=== PATIENT | female | born 1995 | race Caucasian/White ===

== ENCOUNTER 2023-02-21 12:40 | Emergency (ER) | payer OTHER ==
[2023-02-21 13:40] LABS: Bilirubin Neg (Negative); Blood, Urine 10 (Negative); Clarity Clear (Clear); Glucose, Urine (Dipstick) Normal (Negative); Ketone, Urine Negative (Negative); Leukocyte 25 (Negative); Nitrite Negative (Negative); Protein, Urine (Dipstick) Negative (Neg-Trace); Specific Gravity, Urine 1.015 (1.005-1.030)
[2023-02-21 13:45] LABS: Pregnancy Test - Urine (BHCG) POSITIVE (Negative); Pregu Control Background? CLEAR/WHITE (CLR/WHITE); Pregu Control Bar Appear? YES (CONTROL BAR); Specific Gravity 1.015 (1.002-1.036)
[2023-02-21 14:14] LABS: #Basophils 0.1 10x3/uL (0.0-0.2); #Eosinphils 0.3 10x3/uL (0.0-0.5); #Monocytes 0.9 10x3/uL (0.0-1.1); #Neutrophils 5.4 10x3/uL (1.5-8.4); %Basophils 0.9 % (0.0-2.0); %Eosinophils 3.6 % (0.0-6.0); %Lymphocytes 20.6 % (18.0-47.0); %Monocytes 10.6 % (0.0-10.0); %Neutrophils 63.9 % (40.0-75.0); Hematocrit 33.9 % (34.9-44.5); Hemoglobin 10.5 g/dL (12.0-15.5); Mean Corpuscular Hemoglobin 22.6 pg (27.0-33.0); Mean Corpuscular Volume 73.1 fl (81.6-98.3); Mean Platelet Volume 10.4 fl (7.4-10.4); Platelet Count 263 10x3/uL (150-450); RBC Distribution Width 18.1 % (11.5-14.5); Red Blood Cell (RBC) Count 4.64 10x6/uL (3.90-5.03); White Blood Cell (WBC) Count 8.4 10x3/uL (3.5-10.5)
[2023-02-21 14:38] LABS: ALT (SGPT) 21 U/L (8-55); AST (SGOT) 20 U/L (5-34); Albumin 4.3 g/dL (3.5-5.0); Alkaline Phosphatase 64 U/L (40-110); Anion Gap 13 mmol/L (10-20); BUN (Urea Nitrogen) 10 mg/dL (7.0-18.7); Bilirubin, Total 0.3 mg/dL (0.2-1.2); Calc. Creatinine Clearance 0 mL/min (70-130); Calcium 9.3 mg/dL (7.8-10.44); Carbon Dioxide 23 mmol/L (22-29); Chloride 103 mmol/L (98-107); Estimated GFR 124; Globulin 3.6 g/dL (2.4-3.5); Glucose 80 mg/dL (70-105); Potassium 3.9 mmol/L (3.5-5.1); Protein, Total 7.9 g/dL (6.0-8.3); Sodium 135 mmol/L (136-145)
[2023-02-21 14:52] LABS: CAUTI Indications for Culture Pelvic or flank pain; RBC/HPF 0-3 HPF (0-3); Squamous Epithelial 0-3 HPF (0-3)
[2023-02-21 14:53] LABS: Bacteria/HPF 2+ HPF (None Seen); Mucous/LPF 1+ LPF (<2+)
[2023-02-21 14:54] LABS: Urine Culture Reflex No No
[2023-02-21] MEDS ORDERED: Ondansetron PF 4 MG/2 ML Vial ONE (15:35)
[2023-02-21] MEDS ORDERED: cefTRIAXone (ROCEPHIN) 1 GM VIAL ONE (15:36)
== END 2023-02-21 18:12 | disposition home or self-care (01) ==
LOC: CSHERS 12:40
DX: O23.11 Infections of bladder in pregnancy, first trimester (principal); N30.01 Acute cystitis with hematuria; O99.891 Other specified diseases and conditions complicating pregnancy; R10.9 Unspecified abdominal pain; O99.331 Smoking (tobacco) complicating pregnancy, first trimester; F17.290 Nicotine dependence, other tobacco product, uncomplicated; I10 Essential (primary) hypertension; F17.210 Nicotine dependence, cigarettes, uncomplicated; Z3A.01 Less than 8 weeks gestation of pregnancy
CPT/HCPCS: 36415; 76801; 80053; 81001; 81025; 84702; 85025; 87086; 96365; 96375; J0696; J2405

== ENCOUNTER 2023-08-01 11:49 | Day surgery (SDC) | payer MEDICAID, OTHER ==
[2023-08-01 12:40] VITALS: BMI 32.1
[2023-08-01] MEDS ORDERED: Cyclobenzaprine 10 MG TAB PO SCH (13:15)
== END 2023-08-01 13:50 | disposition home or self-care (01) ==
LOC: CSHLD/OP 11:49
PROVIDERS: ATTEND Obstetrics & Gynecology
DX: O99.891 Other specified diseases and conditions complicating pregnancy (principal); M79.18 Myalgia, other site; R10.30 Lower abdominal pain, unspecified; Z3A.29 29 weeks gestation of pregnancy; Z79.899 Other long term (current) drug therapy
CPT/HCPCS: 99283

== ENCOUNTER 2023-08-10 09:57 | Day surgery (SDC) | payer OTHER ==
[2023-08-10 10:36] VITALS: BMI 31.1
[2023-08-10] MEDS ORDERED: hydrALAZINE 20 MG/ML VIAL SLOW IVP PRN (10:52)
[2023-08-10] MEDS ORDERED: Lactated Ringer's 1,000 ML IV SCH ×2 (11:00→12:15)
[2023-08-10 11:42] LABS: Bilirubin Neg (Negative); Blood, Urine 50 (Negative); Clarity Cloudy (Clear); Glucose, Urine (Dipstick) Normal (Negative); Ketone, Urine 150 mg/dL (Negative); Leukocyte 500 (Negative); Nitrite Negative (Negative); Protein, Urine (Dipstick) 100 mg/dl (Neg-Trace)
[2023-08-10 12:06] LABS: Bacteria/HPF 4+ HPF (None Seen); CAUTI Indications for Culture Pregnancy; Squamous Epithelial 0-3 HPF (0-3); WBC/HPF Greater than 50 HPF (0-3)
[2023-08-10 12:08] LABS: Urine Culture Reflex Yes Yes
[2023-08-10] MEDS: Acetaminophen 500 MG TAB PO SCH (12:14)
[2023-08-10 12:18] LABS: Fetal Membranes Rupture No Membranes Rupture (No Rupture)
[2023-08-10] MEDS ORDERED: cefTRIAXone (ROCEPHIN) 500 MG VIAL IM SCH (13:30)
[2023-08-10] MEDS: metroNIDAZOLE 500 MG TAB PO SCH (14:01)
[2023-08-10] MEDS: Lidocaine 1% PF 5 ML VIAL FS SCH (14:01)
[2023-08-10] MEDS: cefTRIAXone (ROCEPHIN) 1 GM VIAL IM SCH (14:01)
== END 2023-08-10 15:10 | disposition home or self-care (01) ==
LOC: CSHLD/OP 09:57
PROVIDERS: ATTEND Obstetrics & Gynecology
DX: O23.03 Infections of kidney in pregnancy, third trimester (principal); O23.593 Infection of other part of genital tract in pregnancy, third trimester; B96.89 Other specified bacterial agents as the cause of diseases classified elsewhere; O99.283 Endocrine, nutritional and metabolic diseases complicating pregnancy, third trimester; E86.0 Dehydration; Z3A.30 30 weeks gestation of pregnancy; Z79.899 Other long term (current) drug therapy; Z79.82 Long term (current) use of aspirin
CPT/HCPCS: 76770; 81001; 84112; 87077; 87086; 87480; 87510; 87660; J0696

== ENCOUNTER 2023-09-21 09:48 | Inpatient (IN) | payer OTHER ==
[2023-09-20 12:50] LABS: Hematocrit 30.8 % (34.9-44.5); Hemoglobin 9.3 g/dL (12.0-15.5); Platelet Count 301 10x3/uL (150-450)
[2023-09-20 13:46] LABS: Syphilis Antibody Nonreactive (Nonreactive); Syphilis Antibody Index 0.08 S/CO (<1.00 Non-Reactive)
[2023-09-20 13:48] LABS: HBSAg Index 0.24 S/CO (0-0.99); Hep B Surf Ag Non-Reactive S/CO (NonReactive)
[2023-09-21] MEDS ORDERED: Diphenoxylate HCl/Atropine Tablet PO PRN (10:43)
[2023-09-21] MEDS ORDERED: Ondansetron PF 4 MG/2 ML Vial IVP PRN ×3 (10:43→12:11)
[2023-09-21] MEDS ORDERED: Misoprostol 200 MCG TAB PR PRN (10:43)
[2023-09-21] MEDS ORDERED: Promethazine HCl 25 MG/ML VIAL IM PRN ×3 (10:43→16:00)
[2023-09-21] MEDS ORDERED: Carboprost 250 MCG/ML AMP IM PRN (10:43)
[2023-09-21] MEDS ORDERED: Bicitra 30 ML UDCUP PO PRN (10:43)
[2023-09-21] MEDS ORDERED: Methylergonovine 0.2 MG/ML VIAL IM PRN (10:43)
[2023-09-21] MEDS ORDERED: hydrALAZINE 20 MG/ML VIAL SLOW IVP PRN ×2 (10:43→16:00)
[2023-09-21] MEDS ORDERED: Famotidine/PF 20 mg/2ml Vial SLOW IVP PRN (10:43)
[2023-09-21] MEDS ORDERED: Lactated Ringer's 1,000 ML IV SCH (10:45)
[2023-09-21] MEDS ORDERED: Oxytocin 30 units/NS 500 ML 500 ML IV SCH (10:45)
[2023-09-21] MEDS ORDERED: CEFAZOLIN 2 GM in Sodium Chloride 0.9% 100 ML IVPB SCH (10:45)
[2023-09-21 10:52] VITALS: BMI 34.0
[2023-09-21] MEDS ORDERED: diphenhydrAMINE 50 MG/ML VIAL IVP PRN (12:11)
[2023-09-21] MEDS ORDERED: Promethazine HCl 25 MG SUPP PR PRN (12:11)
[2023-09-21] MEDS ORDERED: Naloxone HCl 0.4 mg/ml Vial IV PRN (12:11)
[2023-09-21] MEDS ORDERED: Meperidine HCl/PF 25 MG (1 mL) VIAL SLOW IVP PRN (12:11)
[2023-09-21] MEDS ORDERED: fentaNYL 50 mcg/mL 1 mL Vial SLOW IVP PRN (12:11)
[2023-09-21] MEDS ORDERED: Naloxone HCl 0.4 mg/ml Vial IVP PRN ×2 (12:11)
[2023-09-21] MEDS ORDERED: Moisturizing Cream (Eucerin) 113 GM JAR TOP PRN (12:11)
[2023-09-21] MEDS ORDERED: Communication Order-Pharmacy FS SCH (12:15)
[2023-09-21] MEDS ORDERED: Ketorolac Tromethamine 30 MG (1 mL) VIAL IVP SCH (12:15)
[2023-09-21 14:13] LABS: ALT (SGPT) 11 U/L (8-55); AST (SGOT) 14 U/L (5-34); Albumin 2.4 g/dL (3.5-5.0); Alkaline Phosphatase 119 U/L (40-110); Anion Gap 13 mmol/L (10-20); BUN (Urea Nitrogen) 6 mg/dL (7.0-18.7); Bilirubin, Total 0.2 mg/dL (0.2-1.2); Calc. Creatinine Clearance 192 mL/min (70-130); Calcium 8.5 mg/dL (7.8-10.44); Carbon Dioxide 21 mmol/L (22-29); Chloride 106 mmol/L (98-107); Estimated GFR 127; Globulin 4.2 g/dL (2.4-3.5); Glucose 67 mg/dL (70-105); Potassium 3.8 mmol/L (3.5-5.1); Protein, Total 6.6 g/dL (6.0-8.3); Sodium 136 mmol/L (136-145)
[2023-09-21] MEDS: Ondansetron PF 4 MG/2 ML Vial ONE (15:22)
[2023-09-21] MEDS ORDERED: Acetaminophen 325 MG TAB PO PRN (16:00)
[2023-09-21] MEDS ORDERED: Lanolin Ointment 7 GM TUBE TOP PRN (16:00)
[2023-09-21] MEDS ORDERED: Bisacodyl 10 MG SUPP PR PRN (16:00)
[2023-09-21] MEDS ORDERED: diphenhydrAMINE 25 MG CAP PO PRN (16:00)
[2023-09-21] MEDS: Dexamethasone 4 mg/ml Vial ONE (16:18)
[2023-09-21] MEDS: Morphine PF 10 MG/10 ML VIAL ONE (16:18)
[2023-09-21] MEDS: Erythromycin Base 0.5% Oint 1 GM TUBE ONE (16:19)
[2023-09-21] MEDS: Phytonadione Neonatal 1 MG/0.5 ML AMP ONE (16:19)
[2023-09-21] MEDS: PHENYLEPHRINE-NS 100 MCG/ML 10 ML SYRINGE ONE (16:19)
[2023-09-21] MEDS: Boostrix 0.5 ML (Tdap) VIAL (>/=7 yrs of age) IM ONE (16:19)
[2023-09-21] MEDS: Hepatitis B Vaccine 10 MCG/0.5 ML SYR ONE (16:19)
[2023-09-21] MEDS: Ondansetron PF 4 MG/2 ML Vial IVP PRN (18:32)
[2023-09-21] MEDS: Ketorolac Tromethamine 30 MG (1 mL) VIAL IVP PRN (19:55)
[2023-09-21] MEDS: Ferrous Sulfate 325 MG TAB PO SCH (21:06)
[2023-09-21] MEDS: Docusate 100 MG CAP PO SCH (21:06)
[2023-09-22 04:14] LABS: Hematocrit 24.4 % (34.9-44.5); Hemoglobin 7.6 g/dL (12.0-15.5); Mean Corpuscular HGB CONC 31.1 g/dL (32.0-36.0); Mean Corpuscular Hemoglobin 21.2 pg (27.0-33.0); Mean Corpuscular Volume 68.2 fl (81.6-98.3); Mean Platelet Volume 11.3 fl (7.4-10.4); Platelet Count 243 10x3/uL (150-450); RBC Distribution Width 18.5 % (11.5-14.5); Red Blood Cell (RBC) Count 3.58 10x6/uL (3.90-5.03); White Blood Cell (WBC) Count 10.2 10x3/uL (3.5-10.5)
[2023-09-22] MEDS: Simethicone Chewable 80 MG TAB PO PRN (08:52)
[2023-09-22] MEDS: Prenatal Vitamin 1 TAB PO SCH (08:52)
[2023-09-22] MEDS: Ibuprofen 800 MG TAB PO SCH (14:54)
[2023-09-22] MEDS ORDERED: HYDROcodone/Acetaminophen 5/325 mg Tablet PO PRN (16:00)
[2023-09-23] MEDS: HYDROcodone/Acetaminophen 5/325 mg Tablet PO PRN (08:45)
[2023-09-24 08:19] VITALS: BP 127/87; TEMP 98.4
[2023-09-24] MEDS: Labetalol HCl 200 MG TAB PO SCH (08:46)
== END 2023-09-24 17:00 | disposition home or self-care (01) | DRG 788 ==
LOC: CSHLD 09:48 → CSHPP 15:45
PROVIDERS: ADMIT Student in an Organized Health Care Education/Training Program; ATTEND Student in an Organized Health Care Education/Training Program
PROC: 10D00Z1 Extraction of Products of Conception, Low, Open Approach (ICD-10-PCS; principal; 2023-09-21)
DX: O34.211 Maternal care for low transverse scar from previous cesarean delivery (principal); O13.4 Gestational [pregnancy-induced] hypertension without significant proteinuria, complicating childbirth; Z37.0 Single live birth; Z3A.37 37 weeks gestation of pregnancy; Z79.899 Other long term (current) drug therapy; D64.9 Anemia, unspecified; O99.02 Anemia complicating childbirth
CPT/HCPCS: 36415; 51702; 80053; 85014; 85018; 85027; 85049; 86780; 86850; 86900; 86901; 87340; J1100; J1885; J2274; J2405